=== PATIENT | female | born 1960 | race African-American/Black ===

== ENCOUNTER → 2021-03-15 | Outpatient (CLI) | payer OTHER | LOC: CAT 03-14 12:16 | PROVIDERS: ATTEND Nurse Practitioner | DX: J98.11 Atelectasis (principal); J84.10 Pulmonary fibrosis, unspecified; N28.1 Cyst of kidney, acquired; I25.10 Atherosclerotic heart disease of native coronary artery without angina pectoris; K76.0 Fatty (change of) liver, not elsewhere classified; K42.9 Umbilical hernia without obstruction or gangrene; M41.86 Other forms of scoliosis, lumbar region; M47.816 Spondylosis without myelopathy or radiculopathy, lumbar region; R63.4 Abnormal weight loss; R06.00 Dyspnea, unspecified; R10.13 Epigastric pain ==

== ENCOUNTER → 2021-03-24 | Outpatient (CLI) | payer OTHER | LOC: SJCVCIMAG 11:08 | PROVIDERS: ATTEND Nurse Practitioner | DX: I70.203 Unspecified atherosclerosis of native arteries of extremities, bilateral legs (principal) ==

== ENCOUNTER → 2021-04-12 | Outpatient (CLI) | payer OTHER | LOC: SJCVC 12:26 | PROVIDERS: ATTEND Nuclear Medicine Nuclear Cardiology | DX: I73.9 Peripheral vascular disease, unspecified (principal); E78.00 Pure hypercholesterolemia, unspecified; J43.9 Emphysema, unspecified; F17.200 Nicotine dependence, unspecified, uncomplicated; E78.5 Hyperlipidemia, unspecified; I10 Essential (primary) hypertension; Z72.89 Other problems related to lifestyle; Z88.2 Allergy status to sulfonamides; Z88.8 Allergy status to other drugs, medicaments and biological substances; Z88.1 Allergy status to other antibiotic agents; Z79.899 Other long term (current) drug therapy ==

== ENCOUNTER → 2021-04-20 | Outpatient (CLI) | payer OTHER ==
[~2021-04-20] VITALS: Ht 152.4 cm; Wt 49.9 kg
[~2021-04-20] MED LIST: AMBIEN 10 MG TA10 MG PO; ARTHRITIS PAIN100 GM TOP; ASA81BEC PO; CELEXA 20 MG TA20 MG PO; CHANTIX1 MG PO; DULCOLAX STOOL100 M1 PO; FENOFIBRATE150 MG PO; FLONASE 0.05%50 MCG NASAL; FOSAMAX 70 MG T70 MG PO; FUROSEMIDE 40 M40 MG PO; KLOR-CON M1010 MEQ PO; LIDODERM1 EACH TOP; LIPITOR 20 MG T20 M1 PO; LORATIDINE 10 M10 M1 PO; MIRAPEX 0.250.25 M1 PO; PLAVIX 75 MG TA75 MG PO; PROTONIX40 M2 PO; SINGULAIR 10 MG10 M1 PO; TOPICORT 0.25%15 GM TOP; TRAMADOL 50 MG50 MG PO; ZANAFLEX4 M1 PO
[2021-04-20 08:46] LABS: BASOPHILS 0.9 % (0.0-2.0); EOSINOPHILS 1.5 % (0.0-3.0); HEMATOCRIT 47.4 % (37.0-47.0); HEMOGLOBIN 15.5 gm/dL (12.0-15.0); LYMPHOCYTES 24.2 % (24.0-44.0); MCH 34.4 pg (26.0-34.0); MCHC 32.7 g/dL (28.0-37.0); MCV 105.5 fL (80.0-100.0); MONOCYTES 14.6 % (1.0-8.0); PLATELET COUNT 169 thou/uL (150-400); POLYS 58.8 % (36.0-66.0); RDW 15.2 % (10.5-14.5); WBC 5.1 thou/uL (4.0-11.0)
[2021-04-20 08:55] VITALS: BP 134/98
[2021-04-20 08:59] LABS: CALCIUM 8.8 mg/dL (8.5-10.1); POTASSIUM 3.9 mmol/L (3.5-5.1)
--- NOTE | 2021-04-20 15:46 | EKG ---
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: BEN : 1960 Requested By: Danilo Samuel Order Number: [id number] MD: Stefan Stokes Measurements Intervals Vantage Rate: 115 P: 77 MN: 143 QRS: 112 QRSD: 81 T: -61 QT: 298 QTc: 412 Interpretive Statements Sinus tachycardia Paired ventricular premature complexes Probable left atrial enlargement Consider right ventricular hypertrophy Borderline T abnormalities, inferior leads No previous ECG available for comparison Electronically Signed On 04-20-2021 15:46:11 CDT by Stefan Stokes [email or web address] <ELECTRONICALLY SIGNED> By: Stefan Stokes MD, [facility] 04/20/21 1546 0950 0950 Stefan Stokes MD, FACC /EPI
== END | disposition home or self-care (01) ==
LOC: CATH 07:29
PROVIDERS: ATTEND Nuclear Medicine Nuclear Cardiology
DX: I70.213 Atherosclerosis of native arteries of extremities with intermittent claudication, bilateral legs (principal); I70.1 Atherosclerosis of renal artery; M79.604 Pain in right leg; M79.605 Pain in left leg; I10 Essential (primary) hypertension; E11.9 Type 2 diabetes mellitus without complications; I25.10 Atherosclerotic heart disease of native coronary artery without angina pectoris; E78.5 Hyperlipidemia, unspecified; J44.9 Chronic obstructive pulmonary disease, unspecified; F41.9 Anxiety disorder, unspecified; Z98.890 Other specified postprocedural states; Z79.899 Other long term (current) drug therapy; Z86.73 Personal history of transient ischemic attack (TIA), and cerebral infarction without residual deficits; Z82.49 Family history of ischemic heart disease and other diseases of the circulatory system

== ENCOUNTER → 2021-04-25 | Outpatient (CLI) | payer OTHER | LOC: RAD 15:29 | PROVIDERS: ATTEND Nurse Practitioner | DX: N28.1 Cyst of kidney, acquired (principal); N28.89 Other specified disorders of kidney and ureter; K76.0 Fatty (change of) liver, not elsewhere classified ==

== ENCOUNTER → 2021-05-02 | Outpatient (CLI) | payer OTHER ==
[~2021-05-02] VITALS: Ht 165.1 cm; Wt 49.9 kg
[~2021-05-02] MED LIST changes: +METFORMIN HCL500 M3 PO
[2021-05-02 07:40] VITALS: BP 152/112
[2021-05-02 08:06] LABS: HEMATOCRIT 47.7 % (37.0-47.0); HEMOGLOBIN 15.8 gm/dL (12.0-15.0); MCH 34.8 pg (26.0-34.0); MCHC 33.1 g/dL (28.0-37.0); MCV 105.3 fL (80.0-100.0); RBC 4.53 mil/uL (4.20-5.00); RDW 15.4 % (10.5-14.5); WBC 5.8 thou/uL (4.0-11.0)
[2021-05-02 08:15] LABS: CREATININE 1.1 mg/dL (0.6-1.0)
== END | disposition home or self-care (01) ==
LOC: CATH 04-25 07:35
PROVIDERS: ATTEND Nuclear Medicine Nuclear Cardiology
DX: I70.211 Atherosclerosis of native arteries of extremities with intermittent claudication, right leg (principal); M79.604 Pain in right leg; M79.605 Pain in left leg; I10 Essential (primary) hypertension; E11.9 Type 2 diabetes mellitus without complications; E78.5 Hyperlipidemia, unspecified; F17.210 Nicotine dependence, cigarettes, uncomplicated; F41.9 Anxiety disorder, unspecified; J43.9 Emphysema, unspecified; Z98.890 Other specified postprocedural states; Z79.899 Other long term (current) drug therapy; Z86.73 Personal history of transient ischemic attack (TIA), and cerebral infarction without residual deficits; Z90.49 Acquired absence of other specified parts of digestive tract